=== PATIENT | female | born 1945 | race Caucasian/White ===

== ENCOUNTER 2016-10-29 14:34 | Inpatient (IN) ==
[2016-10-29] MEDS ORDERED: SOLU-MEDROL IV ONE (14:57)
[2016-10-29] MEDS ORDERED: ATROVENT NEB INH ONE (14:57)
[2016-10-29] MEDS ORDERED: ALBUTEROL NEB INH ONE (14:57)
[2016-10-29 15:22] LABS: MANUAL DIFF NEEDED? NO
[2016-10-29 15:25] LABS: BASO% 0.2 % (0.0-0.8); HEMOGLOBIN 15.5 g/dL (12.0-16.0); IMM GRAN# 0.03 X1000 (0.0-0.04); IMM GRAN% 0.3 % (0.0-0.5); LYMPH# 0.68 X1000 (1.2-3.4); LYMPH% 5.8 % (20.5-51.1); MCH 31.3 PG (27-31); MCHC 32.3 g/dL (33-37); MONO# 1.41 X1000 (0.11-0.59); MPV 9.5 FL (7.4-10.4); NEUT% 81.7 % (42.2-75.2); PLT 155 X1000 (130-400); RBC 4.95 XMIL (4.2-5.4)
[2016-10-29] MEDS ORDERED: ALBUTEROL NEB ONE (15:29)
[2016-10-29 15:37] LABS: INR 0.85 (0.86-1.15); PROTIME 11.9 Seconds (12.1-15.5)
[2016-10-29 15:38] LABS: PTT PL 25.1 Seconds (22.6-43.9)
[2016-10-29 15:42] LABS: AGAP 9; ALKALINE PHOSPHATASE 94 U/L (32-104); BUN 11 mg/dL (8-22); CALCIUM 8.7 mg/dL (8.8-10.2); CHLORIDE 97 mmol/L (98-107); CK PROFILE 102 U/L (24-173); COSMO 272; GOT 25 U/L (10-30); GPT 13 U/L (10-36); MAGNESIUM 1.9 mg/dL (1.5-2.7); POTASSIUM 3.9 mmol/L (3.5-5.1); SODIUM 136 mmol/L (136-145); TCO2 30 mmol/L (25-35); TOTAL BILIRUBIN < 0.15 mg/dL (0.20-1.00); TOTAL PROTEIN 7.2 g/dL (6.3-8.3)
[2016-10-29 15:43] LABS: BE 2.9 mmoll (-3.0-3.0); BLOOD TYPE ARTERIAL; DRAW SITE R RADIAL; METHB 1.1 % (0.0-1.5); O2(CT) 19.6 mL/dL (15.0-23.0); PO2(98.6) 92 mmHg (60-100); SAMPLE BLOOD; SAO2 97.9 % (95.0-100.0); THB 15.4 g/dL (11.5-17.4); pH(98.6) 7.28 (7.35-7.45)
[2016-10-29 15:45] LABS: MODALITY ROOM AIR
[2016-10-29 15:47] LABS: PCO2(98.6) 68 mmHg (35-45)
--- NOTE | 2016-10-29 15:50 | Diag Imaging Result Document ---
PROCEDURE NAME: CHEST-2 VIEWS - 10/29/2016 2 VIEWS OF THE CHEST: FINDINGS: The appearance of the chest has not changed significantly since 10/28/2016. IMPRESSION: Stable chest.
--- NOTE | 2016-10-29 16:47 | PROVIDER DOCUMENTATION ---
This chart was entered by Maliha Singer Scribe, acting as scribe for Jacqui Larsen MD. HPI-Respiratory General - General Chief Complaint: Shortness of Breath Stated Complaint: SOB/COPD Time Seen by Provider: 10/29/16 15:05 Source: patient Allergies/Adverse Reactions: Patient Allergies Allergy/AdvReac Type Severity Reaction Status Date / Time No Known Allergies Allergy Verified 10/29/16 14:46 Home Medications: Home Medication List Medication Instructions Recorded Confirmed Last Taken Type Carvedilol [Coreg] 6.25 mg PO BID 10/20/13 10/28/16 10/26/13 08:30 History 6.25 Famotidine [Pepcid AC] 20 mg PO DAILY 10/20/13 10/28/16 10/25/13 20:00 History 20 Potassium Gluconate [Potassium] 99 mg PO DAILY 10/20/13 10/28/16 10/25/13 20:00 History 99 Spironolactone [Aldactone] 50 mg PO DAILY 10/20/13 10/28/16 10/26/13 08:30 History 50 Azithromycin [Zithromax Z-Jameson] 250 mg PO DIRECTED #1 pkg 10/28/16 Unknown Rx Benzonatate [Tessalon] 100 mg PO TID PRN PRN #30 capsule 10/28/16 Unknown Rx - History of Present Illness-Resp Nature of Presenting Problem: Pt is 71 y/o F presents to the ED with SOB. Pt states the symptoms have been present for 4 days. Pt denies F. Pt states was seen in ED yesterday and was given a breathing treatment and steroid shot and sent home. Pt denies N/V/D. Quality of Pain: reports: tightness Severity in ED: reports: moderate Onset/Duration: reports: 4 days ago Timing: reports: still present, getting worse Exposure: reports: unknown cause Cough Quality/Degree: reports: no cough Episode Frequency: occasional episodes Current Respiratory Medication Therapy: Initiated see nurses note Modifying Factors: improves with: nothing Associated Symptoms: reports: shortness of breath. denies: chest pain/soreness , cough, dizziness, earache, facial pain, fever/chills, flu-like symptoms, headache, heart racing, hurts to breathe, hyperventilating, lightheadedness, muscle/bodyaches, nasal congestion, nasal drainage, sinus pain, short of breath , sore throat, sweaty, wheezing Similar Symptoms Previously?: Yes Recently seen or treated by another doctor?: Yes Review of Systems - Adult - REVIEW OF SYSTEMS - ADULT Constitutional: denies: chills, fever Eyes: reports: no symptoms reported Ears, Nose, Mouth & Throat: reports: no symptoms reported Cardiovascular: reports: irregular heart rate. denies: chest pain, heart murmur Respiratory: reports: shortness of breath. denies: cough, wheezing Gastrointestinal: reports: no symptoms reported Genitourinary: reports: no symptoms reported Musculoskeletal: reports: no symptoms reported Integumentary: reports: no symptoms reported Neurological: reports: no symptoms reported Psychiatric: reports: no symptoms reported Endocrine: reports: no symptoms reported Hematologic/Lymphatic: reports: no symptoms reported Allergic/Immunologic: reports: no symptoms reported All Other Systems: Reviewed and Negative Past History - Adult - PAST MEDICAL HISTORY-ADULT Review of Records: reports: Nursing Assessment Review, Medications Reviewed, Social history reviewed & non-contributory. Major Childhood Illnesses: reports: denies history Cardiovascular: reports: HTN Respiratory: reports: denies history Gastrointestinal: reports: denies history Obstetrical/Gynecological: reports: denies history Genitourinary: reports: denies history Musculoskeletal: reports: denies history Neurological: reports: denies history Endocrine/Immune: reports: denies history Other Conditions: reports: other (cervical can) - PRIOR SURGERIES/PROCEDURES Surgical/Procedure History: reports: appendectomy, hysterectomy, tonsillectomy, other (colon resection) - IMMUNIZATION STATUS Childhood Immunizations: See Nurse Assessment Flu Vaccine: See Nurse Assessment - FAMILY HISTORY Family History: reviewed, not pertinent - SOCIAL HISTORY Smoking: cigarettes, greater than 1 pack/day Provider spent 3-5 mins advising pt. on dangers of tobacco.: Discussed manners to quit use, and f/u contacts for add'l counseling. Substance Use: denies Living Situation: family Physical Exam-General - PHYSICAL EXAM-ADULT Initial Vital Signs Reviewed: Yes - CONSTITUTIONAL General Appearance: appears well, alert, mild distress - EYES Eyes: PERRL/EOMI, pink conjunctivae - HEAD, EARS, NOSE, MOUTH & THROAT HENMT: normocephalic/atraumatic, moist mucous membranes, normal ENT inspection, TMs normal, pharynx normal - NECK Neck: non-tender, full range of motion, supple, normal inspection - RESPIRATORY Respiratory: chest non-tender, no pleuratic chest pain, no respiratory distress , no accessory muscle use, decreased breath sounds, wheezing, increased rate - CARDIOVASCULAR Cardiovascular: normal peripheral pulses, no edema, no gallop, no JVD, no murmur , tachycardia - GASTROINTESTINAL (ABDOMEN) Abdominal Exam: normal bowel sounds, non tender, soft, no organomegaly, no pulsatile mass - LYMPHATIC Lymphatic: no adenopathy - MUSCULOSKELETAL Back Exam: normal inspection, no CVA tenderness, no vertebral tenderness Extremity: normal range of motion, non-tender, normal gait, normal inspection, no pedal edema, no calf tenderness, normal capillary refill, pelvis stable - SKIN Integumentary: normal color, normal turgor, warm/dry - NEUROLOGIC Neurologic: grossly normal - PSYCHIATRIC Psych/Mental Status: normal mood/affect, oriented x 3 Progress - PLAN OF CARE/RESULTS Progress/Plan/Lab Results: Vital Signs - 8 hr 10/29/16 14:41 10/29/16 15:14 10/29/16 15:25 Temperature 99.0 F 98.4 F Pulse Rate 120 H 110 H 106 H Respiratory Rate 20 30 H 18 Blood Pressure 138/69 136/79 O2 Sat by Pulse Oximetry 76 L 98 98 Laboratory Results - last 24 hr 10/29/16 10/29/16 10/29/16 14:58 14:58 14:58 WBC RBC Hgb Hct MCV MCH MCHC RDW Std Deviation Plt Count MPV Immature Gran % (Auto) Neut % (Auto) Lymph % (Auto) Toole % (Auto) Eos % (Auto) Baso % (Auto) Immature Gran # (Auto) Neut # (Auto) Lymph # (Auto) Toole # (Auto) Eos # (Auto) Baso # (Auto) PT INR APTT (Factor Assay) D-Dimer Specimen Type Sample Site pH pCO2 pO2 HCO3 Base Excess Oxyhemoglobin ABG O2 Sat (Calculated) ABG O2 Saturation ABG Carboxyhemoglobin ABG Methemoglobin Renny Test A-a O2 Difference Total Hemoglobin Lactate Blood Gas Modality FiO2 % Sodium 136 Potassium 3.9 Chloride 97 L Carbon Dioxide 30 Anion Gap 9 BUN 11 D Creatinine 0.6 Estimated GFR/1.73 m2 > 60 BUN/Creatinine Ratio 18 Glucose 116 H Calculated Osmolality 272 Calcium 8.7 L Magnesium 1.9 Total Bilirubin < 0.15 L AST 25 ALT 13 Alkaline Phosphatase 94 Creatine Kinase 102 Troponin T < 0.010 [id number] Pept 295 Total Protein 7.2 Albumin 4.0 Globulin 3.0 Albumin/Globulin Ratio 1.0 10/29/16 10/29/16 10/29/16 14:58 14:58 15:26 WBC 11.77 H D RBC 4.95 Hgb 15.5 Hct 48.0 H MCV 97.0 MCH 31.3 H MCHC 32.3 L RDW Std Deviation 13.3 Plt Count 155 MPV 9.5 Immature Gran % (Auto) 0.3 Neut % (Auto) 81.7 H Lymph % (Auto) 5.8 L Toole % (Auto) 12.0 H Eos % (Auto) 0.0 Baso % (Auto) 0.2 Immature Gran # (Auto) 0.03 Neut # (Auto) 9.63 H Lymph # (Auto) 0.68 L Toole # (Auto) 1.41 H Eos # (Auto) 0.00 Baso # (Auto) 0.02 PT 11.9 L INR 0.85 L APTT (Factor Assay) 25.1 D-Dimer 0.60 H Specimen Type ARTERIAL Sample Site R RADIAL pH 7.28 L pCO2 68 H* pO2 92 HCO3 27.0 H Base Excess 2.9 Oxyhemoglobin 90.1 L ABG O2 Sat (Calculated) 19.6 ABG O2 Saturation 97.9 ABG Carboxyhemoglobin 6.90 H* ABG Methemoglobin 1.1 Renny Test NO A-a O2 Difference -27.0 Total Hemoglobin 15.4 Lactate 1.40 Blood Gas Modality ROOM AIR FiO2 % 21.0 Sodium Potassium Chloride Carbon Dioxide Anion Gap BUN Creatinine Estimated GFR/1.73 m2 BUN/Creatinine Ratio Glucose Calculated Osmolality Calcium Magnesium Total Bilirubin AST ALT Alkaline Phosphatase Creatine Kinase Troponin T Pyc-[id number]-Cijuiijczax Pept Total Protein Albumin Globulin Albumin/Globulin Ratio Orders Category Date Time Status Cardiac Monitoring DIRECTED Care 10/29/16 14:57 Active Saline Loc NOW Care 10/29/16 14:57 Active CHEST-2 VIEWS [RAD] Stat Exams 10/29/16 14:57 Draft ABG [RESP] Routine Lab 10/29/16 15:26 Completed BLOOD CULTURE [BLDCUL] Stat Lab 10/29/16 14:57 Ordered CBC WITH ELECTRONIC DIFF [HEME] Stat Lab 10/29/16 14:58 Completed CK PROFILE [SP CHEM] Stat Lab 10/29/16 14:58 Completed COMPREHENSIVE METABOLIC PANEL [CHEM] Stat Lab 10/29/16 14:[address] D-DIMER PL [COAG] Stat Lab 10/29/16 14:58 Completed MAGNESIUM [CHEM] Stat Lab 10/29/16 14:58 Completed PRO B-NATRIURETIC PEPTIDE Stat Lab 10/29/16 14:58 Completed PROTIME WITH INR PL [COAG] Stat Lab 10/29/16 14:[address] [COAG] Stat Lab 10/29/16 14:58 Completed TROPONIN T Stat Lab 10/29/16 14:[address] W/POSS RFLX CULT [URINALYSIS] Stat Lab 10/29/16 14:57 Uncollected Albuterol Neb Med 10/29/16 14:57 Discontinued 10 mg INH NOW ONE Albuterol [Albuterol Neb] Med 10/29/16 15:29 Discontinued 10 mg .ROUTE .STK-MED ONE Ipratropium [place] Neb [Atrovent Neb] Med 10/29/16 14:57 Discontinued 0.5 mg INH NOW ONE Methylprednisolone Sod Succ [Solu-Medrol] Med 10/29/16 14:57 Discontinued 125 mg IV NOW ONE Aerosol Treatments Routine Oth 10/29/16 15:01 Active Aerosol Treatments Stat Oth 10/29/16 15:01 Active BIPAP Stat Oth 10/29/16 15:50 Active EKG [EKG] Stat Ther 10/29/16 14:57 Ordered Result Diagrams: 10/29/16 14:58 10/29/16 14:58 - EKG 1 Time of EKG reading by physician:: 15:04 EKG Read and Signed by:: Jacqui Larsen EKG Interpretation (*Must complete 3 of following elements*): Abnormal Rate: 112 Rhythm: sinus tachycardia Comments: possible left atrial enlargement; anteroseptal infarct, age undetermined - XRAY 1 XRAY: Bilateral XRAY Study: Chest Impression: Normal XRAY Interpretation: stable chest - CONSULTS/PCP/HOSPITALIST Notification #1 *Consult/PCP/Hospitalist*: Dr. Garcia Time Discussed: 15:56 (Dr. Garcia accepted admit ) Reason/Comments: Dr. Larsen consulted with Dr. Garcia about admit of Pt Consult Disposition: Admit Departure - Departure Time of Disposition Decision: 15:55 DIAGNOSIS: Carbon dioxide retention, COPD exacerbation Disposition: ADMITTED INPATIENT 09 Certified Medical Emergency: Emergent Condition: Stable Additional Freetext Instructions: ED Follow Up Instructions: You have been treated by a care provider in the Emergency Department. These instructions are being provided to you so you can have an understanding of how to care for yourself upon discharge. Upon discharge from the Emergency Department, you are responsible for making arrangements for follow-up care by a physician of your choice. Take all prescribed medications as directed. Return to the Emergency Department immediately for any new or worsening symptoms. You may call the Physician Referral phone number at [phone] to obtain a list of Physicians who are taking new patients. Referrals and Follow-Ups: Edward Garcia MD [Primary Care Provider] - This chart was documented by the indicated scribe, (Maliha Singer Scribe) and accurately reflects the services I performed and decisions made by me, Jacqui Larsen MD, as attested by the provider's signature.
--- NOTE | 2016-10-29 18:29 | EKG Report ---
Test Performed on : 10/29/2016 3:04:47 PM Test Reason : CHEST PAIN Blood Pressure : / mmHG Vent. Rate : 112 BPM Atrial Rate : 112 BPM P-R Int : 154 ms QRS Dur : 072 ms QT Int : 346 ms P-R-T Axes : 081 060 044 degrees QTc Int : 472 ms Sinus tachycardia. Possible Left atrial enlargement Anteroseptal infarct , age undetermined Abnormal ECG When compared with ECG of 28-OCT-2016 09:47, premature ventricular complexes. are no longer present Unconfirmed Result
[2016-10-29] MEDS: COREG PO SCH (20:33)
[2016-10-29] MEDS: NICODERM PATCH TD PRN (20:34)
[2016-10-30 00:16] LABS: BE 5.6 mmoll (-3.0-3.0); BLOOD TYPE ARTERIAL; DRAW SITE R RADIAL; METHB 1.2 % (0.0-1.5); O2(CT) 19.3 mL/dL (15.0-23.0); PO2(98.6) 57 mmHg (60-100); SAMPLE BLOOD; SAO2 93.4 % (95.0-100.0); THB 15.5 g/dL (11.5-17.4); pH(98.6) 7.27 (7.35-7.45)
[2016-10-30 00:26] LABS: ALLEN TEST YES; MODALITY CANNULA; PCO2(98.6) 78 mmHg (35-45)
[2016-10-30 00:55] LABS: BILIRUBIN URINE NEGATIVE (NEGATIVE); BLOOD URINE TRACE (NEGATIVE); COLOR YELLOW; GLUCOSE URINE NEGATIVE (NEGATIVE); LEUKOCYTES URINE NEGATIVE (NEGATIVE); NITRITE URINE NEGATIVE (NEGATIVE); PROTEIN URINE 1+(30 mg/dL) mg/dL (NEGATIVE); UROBILINOGEN URINE NORMAL
[2016-10-30 00:55] LABS: UR AMPHETAMINES QUAL NONE DETECTED (NONE DETECT); UR BARBITUATES QUAL NONE DETECTED (NONE DETECT); UR BENZODIAZEPIN QUAL NONE DETECTED (NONE DETECT); UR CANNABINOIDS QUAL NONE DETECTED (NONE DETECT); UR COCAINE QUAL NONE DETECTED (NONE DETECT); UR MDMA QUAL NONE DETECTED (NONE DETECT); UR METHADONE QUAL NONE DETECTED (NONE DETECT); UR METHAMPHETAMINE QUAL NONE DETECTED (NONE DETECT); UR OPIATES QUAL NONE DETECTED (NONE DETECT); UR OXYCODONE QUAL NONE DETECTED (NONE DETECT); UR PCP QUAL NONE DETECTED (NONE DETECT); UR TCA QUAL NONE DETECTED (NONE DETECT)
[2016-10-30 01:04] LABS: CLARITY HAZY (CLEAR)
[2016-10-30 01:06] LABS: URINE CULTURE PL NEEDED? YES; URINE EPITHELIAL CELLS >10 /HPF (<10); URINE RBC <10 /HPF (<10); URINE SOURCE CLEAN CATCH; URINE WBC <10 /HPF (<10)
[2016-10-30] MEDS: COREG PO SCH ×2 (08:28→21:15)
[2016-10-30] MEDS: ALDACTONE PO SCH (08:29)
--- NOTE | 2016-10-30 14:22 | PROGRESS NOTE ---
DATE: 10/30/2016 Ms. Plunkett is a patient of mine that I had not seen in 4 years. She is 71 years old and has a long- standing history of cigarette abuse and apparent COPD. She presented on this occasion to the emergency room complaining of shortness of breath and was given a chest x-ray that revealed no significant change in pathology although they did not cite the kind of pathology she previously had on her film. Her initial white count was 11,770 with a left shift. Hematocrit was 48 and platelet count was 155,000. Coags: D-dimer was 0.60, her PT was 11.9, INR was 0.85. Initial blood gas; pH was 728, pCO2 was 68, PO2 was 92, and her carboxyhemoglobin was 6.90. These were done on room air. Lactate was 1.4, oxyhemoglobin was 90. She was subsequently tried on 32% cannula, pH was 727, pCO2 was 78, PO2 was 57, O2 oxyhemoglobin was 88.8. Her carboxyhemoglobin was 3.70. Her chemistries from admission revealed a sodium of 136, potassium of 3.9, chloride was 97, CO2 was 30, BUN of 11, creatinine 0.6. GFR is greater than 60. BUN:creatinine ratio was 18, glucose 166, calcium 8.7, magnesium 1.9, total bilirubin 0.15. ALT was 13, AST 25, albumin 3, total protein 7.2, CK was 102, troponin was less than 0.01. BNP was 295. Her urine was 2+ bacteria, less than 10 RBCs, no white cells, epithelial cells were greater than 10. Toxicologies were none detected. She was felt to be in respiratory failure based on probably COPD secondary to cigarette smoking. She was admitted to the ICU from the emergency room. Cultures have been obtained. She is on Coreg 6.25 b.i.d. She is currently on a nicotine patch 14 mg daily. She is on spironolactone 50 daily, albuterol/ipratropium q.4, methylprednisolone 125 one dose. She had some home medicines which include a Z-Jameson that she had obtained from the ER along with some Tessalon Perles. She also had Pepcid 20 daily, spironolactone 50 daily, potassium gluconate 100 mg daily. Today, her vital signs: She is very alert. Temperature is 97.9 degrees, pulse is 86, respiratory rate was 18, BP 118/62. Her O2 saturation was 95 on 40%. She seems fine. I do not think she is infected, I think it is just a combination of her cigarette smoking. Hopefully her gases are better today. I think it is appropriate to put her on some antibiotics just orally and some steroids and continue pulmonary toilet and follow her gasses. cc: Edward Garcia MD
[2016-10-30] MEDS: LEVAQUIN 500 MG/D5W 500 MG/100 ML IVPB IV SCH (15:48)
[2016-10-30] MEDS: SOLU-MEDROL IV SCH ×2 (15:48→21:14)
[2016-10-30] MEDS: NICODERM PATCH TD PRN (21:19)
[2016-10-31] MEDS: SOLU-MEDROL IV SCH ×3 (05:37→20:02)
[2016-10-31 06:05] LABS: BE 9.7 mmoll (-3.0-3.0); BLOOD TYPE ARTERIAL; DRAW SITE L BRACHIAL; METHB 1.4 % (0.0-1.5); O2(CT) 19.7 mL/dL (15.0-23.0); PO2(98.6) 80 mmHg (60-100); SAMPLE BLOOD; SAO2 97.2 % (95.0-100.0); THB 14.9 g/dL (11.5-17.4); pH(98.6) 7.34 (7.35-7.45)
[2016-10-31 06:18] LABS: ALLEN TEST NO; MODALITY BI PAP; PCO2(98.6) 72 mmHg (35-45)
[2016-10-31 07:03] LABS: BASO% 0.4 % (0.0-0.8); HEMATOCRIT 46.5 % (37.0-47.0); HEMOGLOBIN 14.2 g/dL (12.0-16.0); IMM GRAN# 0.02 X1000 (0.0-0.04); IMM GRAN% 0.4 % (0.0-0.5); LYMPH# 0.78 X1000 (1.2-3.4); LYMPH% 14.3 % (20.5-51.1); MANUAL DIFF NEEDED? YES; MCH 30.3 PG (27-31); MCHC 30.5 g/dL (33-37); MCV 99.1 FL (81-99); MONO# 0.31 X1000 (0.11-0.59); MONO% 5.7 % (1.7-9.3); MPV 9.9 FL (7.4-10.4); NEUT% 79.2 % (42.2-75.2); PLT 124 X1000 (130-400); RBC 4.69 XMIL (4.2-5.4)
[2016-10-31 07:14] LABS: AGAP 7; BUN 15 mg/dL (8-22); CALCIUM 8.6 mg/dL (8.8-10.2); CHLORIDE 94 mmol/L (98-107); COSMO 270; POTASSIUM 4.3 mmol/L (3.5-5.1); SODIUM 134 mmol/L (136-145); TCO2 33 mmol/L (25-35)
[2016-10-31 07:54] LABS: LYMPHS 12 % (21-51); MONO 10 % (1-9)
[2016-10-31] MEDS: COREG PO SCH ×2 (09:30→20:01)
[2016-10-31] MEDS: ALDACTONE PO SCH (10:00)
[2016-10-31 11:01] LABS: ALLEN TEST YES
[2016-10-31] MEDS: LEVAQUIN 500 MG/D5W 500 MG/100 ML IVPB IV SCH (14:52)
[2016-10-31] MEDS: MOTRIN PO PRN (20:02)
[2016-10-31] MEDS: NICODERM PATCH TD PRN (20:02)
[2016-11-01] MEDS: COREG PO SCH ×2 (08:18→20:02)
[2016-11-01] MEDS: ALDACTONE PO SCH (08:18)
[2016-11-01] MEDS: SOLU-MEDROL IV SCH ×3 (08:18→23:00)
[2016-11-01 11:55] LABS: BE 10.6 mmoll (-3.0-3.0); BLOOD TYPE ARTERIAL; DRAW SITE R BRACHIAL; O2(CT) 20.1 mL/dL (15.0-23.0); PO2(98.6) 61 mmHg (60-100); SAMPLE BLOOD; SAO2 94.7 % (95.0-100.0); THB 15.6 g/dL (11.5-17.4); pH(98.6) 7.41 (7.35-7.45)
[2016-11-01 11:57] LABS: ALLEN TEST NO; MODALITY CANNULA; PCO2(98.6) 60 mmHg (35-45)
[2016-11-01] MEDS: LEVAQUIN 500 MG/D5W 500 MG/100 ML IVPB IV SCH (15:45)
[2016-11-01 17:36] LABS: BE 8.6 mmoll (-3.0-3.0); BLOOD TYPE ARTERIAL; DRAW SITE L RADIAL; METHB 1.3 % (0.0-1.5); O2(CT) 18.8 mL/dL (15.0-23.0); SAMPLE BLOOD; THB 15.7 g/dL (11.5-17.4); pH(98.6) 7.44 (7.35-7.45)
[2016-11-01 17:39] LABS: PCO2(98.6) 51 mmHg (35-45)
[2016-11-01 17:40] LABS: PO2(98.6) 46 mmHg (60-100)
[2016-11-01 17:41] LABS: ALLEN TEST YES
[2016-11-01] MEDS: MOTRIN PO PRN (20:03)
[2016-11-01] MEDS: NICODERM PATCH TD PRN (20:07)
[2016-11-02 07:59] LABS: BE 11.5 mmoll (-3.0-3.0); BLOOD TYPE ARTERIAL; DRAW SITE L RADIAL; METHB 1.2 % (0.0-1.5); PCO2(98.6) 50 mmHg (35-45); PO2(98.6) 57 mmHg (60-100); SAMPLE BLOOD; SAO2 93.9 % (95.0-100.0); THB 16.5 g/dL (11.5-17.4); pH(98.6) 7.48 (7.35-7.45)
[2016-11-02 08:01] LABS: ALLEN TEST YES; MODALITY CANNULA
[2016-11-02 08:28] VITALS: BP 148/77
[2016-11-02] MEDS: ALDACTONE PO SCH (09:52)
[2016-11-02] MEDS: COREG PO SCH (09:53)
[2016-11-02] MEDS: SOLU-MEDROL IV SCH (09:53)
[2016-11-05 11:56] LABS: MODALITY ROOM AIR
--- NOTE | 2016-11-15 22:55 | DISCHARGE SUMMARY ---
ADMISSION DATE: 10/29/2016 DISCHARGE DATE: 11/02/2016 HISTORY: Yudith Plunkett is a left-sided smoker, who presented in respiratory distress with ventilatory failure. Her database here her blood gases when she presented her pH was 728, pH was low, pCO2 was 68 high, PO2 was 92, and that was on 21% with a 6.9 carboxyhemoglobin during the hospital stay. Her gases significantly improved. Carboxyhemoglobin at discharge was 2.2. Her blood gases pH was 748, pCO2 was 50, PO2 was 57, on 2 L nasal cannula. Her microbiology was negative. The database, initial white count was 11,770, subsequent one was 5.47, hematocrit was 46.5, platelet count was fine. Chemistries likewise were relatively normal. LFTs were normal. Urinalysis was negative for the most part. Toxicologies were negative. Her chest x-ray was read has stable. No changes since her prior exam. She had an EKG, which showed a sinus tach. She had a significant improvement being away from her cigarettes. We ended up sending her up for home neb treatments and oxygen, and we will be following her as an outpatient. cc: Edward Garcia MD
--- NOTE | 2016-11-18 09:01 | HISTORY AND PHYSICAL ---
HISTORY OF PRESENT ILLNESS: The patient presented to the emergency room complaining of shortness of breath. She stated that these symptoms have been present for 4 days. She has had no associated fever. Had been seen in the ER the day prior to her presentation on 10/29/2016 and was given a breathing treatment and a steroid shot and sent home. She denies nausea or vomiting. She has of tightness in her chest the past 4 days. It seems like it is getting worse. Not really coughing, but feels short of breath. She denied any chest pain, cough, fever, chills, dizziness, flu-like symptoms, headache, racing heart. It is difficult for her to breathe. She does breathe fast. She is generally short of breath and has had some issues with wheezing. ALLERGIES: She has no allergies. MEDICATION: She presented on carvedilol 6.25 b.i.d., 20 of Pepcid, 100 mg of potassium, spironolactone 50, and she was recently was put on benzoate and a Z-Jameson. REVIEW OF SYSTEMS: Constitution: She denies any fever or chills. No significant weight gain or weight loss. Eyes: No injection or discharge from her eyes, change in visual del real or visual acuity. Ears, Nose, and Throat: No sinusitis, otitis, or pharyngitis. Cardiovascular: She denies chest pain, heart murmur. She has an irregular heart rate. Respiratory: She denies significant cough. She is wheezing. She is short of breath. REVIEW OF SYSTEMS: Gastrointestinal: She denies any nausea, vomiting, diarrhea, or constipation. No melena, hematochezia. Genitourinary: No dysuria, hematuria, polyuria, pyuria, incontinence. Musculoskeletal: No significant joint aches, bone pain, deformities. Skin clear. No rashes or masses. Neurologic: No history of seizures, epilepsy, syncope, migraines. Hematological: No bleeding. No bruising. No clotting. Allergy: No hay fever. No asthma. PAST MEDICAL HISTORY: She has a history of hypertension. She has a longstanding history of COPD. She has a history of cervical cancer. She is status post appendectomy, hysterectomy, tonsillectomy, and a colon resection. The patient is a smoker smoking greater than a pack a day even now. She denies substance abuse. PHYSICAL EXAMINATION: VITAL SIGNS: At the time of admission, she had a temperature of 99 degrees, pulse of 120, respiratory 20, BP 138/69. Her O2 saturation downstairs was 76. Subsequent O2 saturations were 98 on supplemental oxygen. HEAD: Normocephalic. GENERAL: She was in mild distress. She was visibly dyspneic. EYES: PERRLA. EOMs intact. HEENT: No pharyngitis. No dry mucous membranes. Normal ears, nose, and throat inspection. Neck supple. Bounding carotids without thyromegaly or midline trachea. Respiratory: Chest was nontender. No pleuritic pain. No respiratory distress. No accessory muscle use. She had decreased breath sounds wheezing and increased respiratory rate. CARDIOVASCULAR: She had normal peripheral pulse. No edema. No gallop. No JVD. No murmur. Tachycardia. Abdomen: Soft. No hepatosplenomegaly. No CVA tenderness. EXTREMITIES: Negative for clubbing, cyanosis, or edema. LYMPHATICS: No lymphadenopathy. MUSCULOSKELETAL: No obvious deformities. SKIN: Clear. NEUROLOGIC: Symmetrical. PSYCHIATRIC: Oriented x3. LABORATORY DATA: Her database in the ER as well included the following: She had a normal set of electrolytes. BUN 11, creatinine 0.6, GFR greater than 60, glucose 116, and calcium 8.7. Mag 1.9. LFTs were normal. CK and troponins were normal. BNP was normal. Protein, albumin, and globulins were negative. CBC: White count was 11,770. Hematocrit 48. Platelet count was 155,000. She had a left shift. D-dimer was 0.6. Blood gas 728. PCO2 of 68, PO2 of 92, carboxyhemoglobin 6.9; this was on room air. She had an EKG which showed sinus tach, possible left atrial enlargement and anterior septal infarct. Rate was 112. Chest x-ray was normal. She was admitted with carbon dioxide retention, COPD, smoker. cc: Edward Garcia MD
== END 2016-11-02 12:10 | disposition home or self-care (01) ==
LOC: P.ICU 14:34 → P.ED 14:34 → OBSVTOIN 16:34
PROVIDERS: ADMIT Internal Medicine; ATTEND Internal Medicine

== ENCOUNTER 2016-11-03 02:14 | Inpatient (IN) ==
[2016-11-03] MEDS ORDERED: SOLU-MEDROL IV ONE (02:17)
[2016-11-03] MEDS ORDERED: DUONEB (A & A) INH ONE (02:17)
--- NOTE | 2016-11-03 02:18 | PROVIDER DOCUMENTATION ---
HPI-Respiratory General - General Stated Complaint: SOB Time Seen by Provider: 11/03/16 02:16 Source: patient Unable to obtain history due to:: urgency Allergies/Adverse Reactions: Patient Allergies Allergy/AdvReac Type Severity Reaction Status Date / Time No Known Allergies Allergy Verified 11/03/16 02:20 Home Medications: Home Medication List Medication Instructions Recorded Confirmed Last Taken Type Carvedilol [Coreg] 6.25 mg PO BID 10/20/13 11/03/16 10/26/13 08:30 History 6.25 Famotidine [Pepcid AC] 20 mg PO DAILY 10/20/13 11/03/16 10/25/13 20:00 History 20 Potassium Gluconate [Potassium] 99 mg PO DAILY 10/20/13 11/03/16 10/25/13 20:00 History 99 Spironolactone [Aldactone] 50 mg PO DAILY 10/20/13 11/03/16 10/26/13 08:30 History 50 Azithromycin [Zithromax Z-Jameson] 250 mg PO DIRECTED #1 pkg 10/28/16 11/03/16 Unknown Rx Benzonatate [Tessalon] 100 mg PO TID PRN PRN #30 capsule 10/28/16 11/03/16 Unknown Rx - History of Present Illness-Resp Quality of Pain: reports: aching Severity in ED: reports: mild Onset/Duration: reports: 4-6 hours ago Timing: reports: still present, gone now Context: reports: recent URI Exposure: reports: enviromental allergen exposure Cough Quality/Degree: reports: no cough Episode Frequency: no prior episodes Current Respiratory Medication Therapy: Initiated see nurses note Modifying Factors: improves with: nothing Associated Symptoms: reports: fever/chills, lightheadedness, shortness of breath , short of breath Similar Symptoms Previously?: Yes Recently seen or treated by another doctor?: Yes Review of Systems - Adult - REVIEW OF SYSTEMS - ADULT Constitutional: reports: no symptoms reported Eyes: reports: no symptoms reported Ears, Nose, Mouth & Throat: reports: no symptoms reported Cardiovascular: reports: no symptoms reported Respiratory: reports: no symptoms reported Gastrointestinal: reports: no symptoms reported Genitourinary: reports: no symptoms reported Musculoskeletal: reports: no symptoms reported Integumentary: reports: no symptoms reported Neurological: reports: no symptoms reported Psychiatric: reports: no symptoms reported Endocrine: reports: no symptoms reported Hematologic/Lymphatic: reports: no symptoms reported Allergic/Immunologic: reports: no symptoms reported All Other Systems: Reviewed and Negative Past History - Adult - PAST MEDICAL HISTORY-ADULT Review of Records: reports: Old Records Reviewed, Nursing Assessment Review, Medications Reviewed, Social history reviewed & non-contributory. Major Childhood Illnesses: reports: denies history Cardiovascular: reports: HTN Respiratory: reports: denies history Gastrointestinal: reports: denies history Obstetrical/Gynecological: reports: denies history Genitourinary: reports: denies history Musculoskeletal: reports: denies history Neurological: reports: denies history Endocrine/Immune: reports: denies history Other Conditions: reports: other (cervical can) - PRIOR SURGERIES/PROCEDURES Surgical/Procedure History: reports: appendectomy, hysterectomy, tonsillectomy, other (colon resection) - IMMUNIZATION STATUS Childhood Immunizations: See Nurse Assessment Flu Vaccine: See Nurse Assessment - FAMILY HISTORY Family History: reviewed, not pertinent Physical Exam-General - PHYSICAL EXAM-ADULT Initial Vital Signs Reviewed: Yes - CONSTITUTIONAL General Appearance: appears well, alert, no apparent distress - EYES Eyes: PERRL/EOMI, pink conjunctivae - HEAD, EARS, NOSE, MOUTH & THROAT HENMT: normocephalic/atraumatic, moist mucous membranes, normal ENT inspection, TMs normal, pharynx normal - NECK Neck: non-tender, full range of motion, supple, normal inspection - RESPIRATORY Respiratory: chest non-tender, lungs clear, normal breath sounds, no pleuratic chest pain, no respiratory distress, no accessory muscle use - CARDIOVASCULAR Cardiovascular: normal peripheral pulses, regular rate, rhythm, no edema, no gallop, no JVD, no murmur - GASTROINTESTINAL (ABDOMEN) Abdominal Exam: normal bowel sounds, non tender, soft, no organomegaly, no pulsatile mass - LYMPHATIC Lymphatic: no adenopathy - MUSCULOSKELETAL Back Exam: normal inspection, no CVA tenderness, no vertebral tenderness Extremity: normal range of motion, non-tender, normal gait, normal inspection, no pedal edema, no calf tenderness, normal capillary refill, pelvis stable - SKIN Integumentary: normal color, normal turgor, warm/dry - NEUROLOGIC Neurologic: adzing and boring machine helper II-XII nml as tested, no motor/sensory deficits - PSYCHIATRIC Psych/Mental Status: normal mood/affect, normal thought content, normal thought process, oriented x 3 Progress - PLAN OF CARE/RESULTS Progress/Plan/Lab Results: Vital Signs - 8 hr 11/03/16 02:15 11/03/16 02:30 11/03/16 02:57 Temperature 97.0 F L Pulse Rate 86 89 82 Respiratory Rate 25 H 18 22 Blood Pressure 148/82 135/82 O2 Sat by Pulse Oximetry 94 L 93 L 93 L 11/03/16 03:55 11/03/16 04:33 11/03/16 05:05 Temperature Pulse Rate 86 102 H 97 H Respiratory Rate 22 24 18 Blood Pressure 154/83 141/87 O2 Sat by Pulse Oximetry 94 L 93 L 92 L Laboratory Results - last 24 hr 11/03/16 11/03/16 11/03/16 02:14 02:35 02:35 WBC RBC Hgb Hct MCV MCH MCHC RDW Std Deviation Plt Count MPV Immature Gran % (Auto) Neut % (Auto) Lymph % (Auto) Swift % (Auto) Eos % (Auto) Baso % (Auto) Immature Gran # (Auto) Neut # (Auto) Lymph # (Auto) Swift # (Auto) Eos # (Auto) Baso # (Auto) PT INR APTT (Factor Assay) D-Dimer Specimen Type ARTERIAL Sample Site L BRACHIAL pH 7.51 H pCO2 43 pO2 58 L HCO3 32.4 H Base Excess 9.9 H Oxyhemoglobin 91.4 L ABG O2 Sat (Calculated) 22.2 ABG O2 Saturation 94.1 L ABG Carboxyhemoglobin 1.70 ABG Methemoglobin 1.1 Renny Test NO A-a O2 Difference 145.0 Total Hemoglobin 17.3 Lactate 1.10 Liter Flow 4.0 Blood Gas Modality CANNULA FiO2 % 36.0 Sodium 132 L Potassium 3.4 L Chloride 94 L Carbon Dioxide 30 Anion Gap 8 BUN 21 Creatinine 0.5 Estimated GFR/1.73 m2 > 60 BUN/Creatinine Ratio 42 Glucose 115 H Calculated Osmolality 268 Calcium 8.8 Magnesium 2.1 Total Bilirubin 0.60 AST 22 ALT 14 Alkaline Phosphatase 67 Creatine Kinase 51 Troponin T < 0.010 Oxb-V-Bavsgxaufil Pept Total Protein 6.6 Albumin 3.5 Globulin 3.0 Albumin/Globulin Ratio 1.0 Plasma Lactate 11/03/16 11/03/16 11/03/16 02:35 02:35 02:35 WBC 10.26 RBC 5.38 Hgb 16.4 H Hct 49.3 H MCV 91.6 MCH 30.5 MCHC 33.3 RDW Std Deviation 12.7 Plt Count 217 MPV 9.0 Immature Gran % (Auto) 0.2 Neut % (Auto) 74.7 Lymph % (Auto) 13.5 L Swift % (Auto) 11.5 H Eos % (Auto) 0.0 Baso % (Auto) 0.1 Immature Gran # (Auto) 0.02 Neut # (Auto) 7.67 H Lymph # (Auto) 1.38 Swift # (Auto) 1.18 H Eos # (Auto) 0.00 Baso # (Auto) 0.01 PT 12.5 INR 0.90 APTT (Factor Assay) 23.5 D-Dimer 1.28 H Specimen Type Sample Site pH pCO2 pO2 HCO3 Base Excess Oxyhemoglobin ABG O2 Sat (Calculated) ABG O2 Saturation ABG Carboxyhemoglobin ABG Methemoglobin Renny Test A-a O2 Difference Total Hemoglobin Lactate Liter Flow Blood Gas Modality FiO2 % Sodium Potassium Chloride Carbon Dioxide Anion Gap BUN Creatinine Estimated GFR/1.73 m2 BUN/Creatinine Ratio Glucose Calculated Osmolality Calcium Magnesium Total Bilirubin AST ALT Alkaline Phosphatase Creatine Kinase Troponin T Xoz-I-Pheseirnmnm Pept 1619 H Total Protein Albumin Globulin Albumin/Globulin Ratio Plasma Lactate 11/03/16 02:35 WBC RBC Hgb Hct MCV MCH MCHC RDW Std Deviation Plt Count MPV Immature Gran % (Auto) Neut % (Auto) Lymph % (Auto) Swift % (Auto) Eos % (Auto) Baso % (Auto) Immature Gran # (Auto) Neut # (Auto) Lymph # (Auto) Swift # (Auto) Eos # (Auto) Baso # (Auto) PT INR APTT (Factor Assay) D-Dimer Specimen Type Sample Site pH pCO2 pO2 HCO3 Base Excess Oxyhemoglobin ABG O2 Sat (Calculated) ABG O2 Saturation ABG Carboxyhemoglobin ABG Methemoglobin Renny Test A-a O2 Difference Total Hemoglobin Lactate Liter Flow Blood Gas Modality FiO2 % Sodium Potassium Chloride Carbon Dioxide Anion Gap BUN Creatinine Estimated GFR/1.73 m2 BUN/Creatinine Ratio Glucose Calculated Osmolality Calcium Magnesium Total Bilirubin AST ALT Alkaline Phosphatase Creatine Kinase Troponin T Tkc-Z-Cdagdmqxhix Pept Total Protein Albumin Globulin Albumin/Globulin Ratio Plasma Lactate 1.4 Orders Category Date Time Status Admit - [facility] Routine AdmDCTranf 11/03/16 05:08 Ordered Activity - Strict Bedrest ORDERED Care 11/03/16 05:08 Active Call Admitting on Arrival AT ADMISSION Care 11/03/16 05:09 Active Cardiac Monitoring DIRECTED Care 11/03/16 02:16 Active Saline Loc DIRECTED Care 11/03/16 05:08 Active Saline Loc NOW Care 11/03/16 02:16 Active Vital Signs Order ARRIVAL TO ROOM Care 11/03/16 05:08 Active Heart Healthy Diet Diet 11/03/16 05:10 Active CTA [ANGIOGRAM/PULMONARY ARTERIES] [CT] Stat Exams 11/03/16 02:16 Taken ABG [RESP] Routine Lab 11/03/16 02:14 Completed BLOOD CULTURE [BLDCUL] Stat Lab 11/03/16 02:17 Ordered CBC WITH ELECTRONIC DIFF [HEME] Stat Lab 11/03/16 02:35 Completed CK PROFILE [SP CHEM] Stat Lab 11/03/16 02:35 Completed COMPREHENSIVE METABOLIC PANEL [CHEM] Stat Lab 11/03/16 02:[address] D-D[address]ER [address] [COAG] Stat Lab 11/03/16 02:35 Completed LACTATE, PLASMA [CHEM] Stat Lab 11/03/16 02:35 Completed MAGNESIUM [CHEM] Stat Lab 11/03/16 02:35 Completed PRO B-NATRIURETIC PEPTIDE Stat Lab 11/03/16 02:35 Completed PR[address]IME WITH INR PL [COAG] Stat Lab 11/03/16 02:[address] [COAG] Stat Lab 11/03/16 02:35 Completed TROPONIN T Stat Lab 11/03/16 02:35 Completed Acetaminophen [Tylenol] Med 11/03/16 05:08 Active 650 mg PO Q6H PRN PRN Albuterol 2.5MG/Ipratrop 0.5MG [Duoneb (A & A)] Med 11/03/16 02:17 Discontinued 3 ml INH NOW ONE Albuterol 2.5MG/Ipratrop 0.5MG [Duoneb (A & A)] Med 11/03/16 07:30 Ordered 3 ml INH RTQ4H CefTRIAXONE 1 GM/NS [Rocephin 1 gm/Ns] Med 11/03/16 05:15 Ordered 1 gm in 50 ml IV Q24H Furosemide [Lasix] Med 11/03/16 03:31 Discontinued 60 mg IV NOW ONE Methylprednisolone Sod Succ [Solu-Medrol] Med 11/03/16 02:17 Discontinued 125 mg IV NOW ONE Methylprednisolone Sod Succ [Solu-Medrol] Med 11/03/16 05:15 Ordered 60 mg IV Q8H Morphine Med 11/03/16 05:08 Active 2 mg IV Q2H PRN PRN Nitroglycerin Med 11/03/16 03:31 Discontinued 1 inch TOP NOW ONE Ondansetron [Zofran] Med 11/03/16 05:08 Active 4 mg IV Q4H PRN PRN Aerosol Treatments Routine Oth 11/03/16 02:17 Completed Aerosol Treatments Routine Oth 11/03/16 05:10 Active Aerosol Treatments Stat Oth 11/03/16 02:17 Completed Aerosol Treatments Stat Oth 11/03/16 05:10 Active Oxygen Device Routine Oth 11/03/16 05:09 Active Telemetry [OM.EQ] Routine Oth 11/03/16 05:08 Active EKG [EKG] Stat Ther 11/03/16 02:16 Ordered Transfer/Admit Order [TRANSFER] Routine Transfer 11/03/16 05:12 Ordered Result Diagrams: 11/03/16 02:35 11/03/16 02:35 Departure - Departure Time of Disposition Decision: 05:00 DIAGNOSIS: COPD with emphysema Disposition: ADMITTED INPATIENT 09 Certified Medical Emergency: Emergent Condition: Stable Referrals and Follow-Ups: Edward Garcia MD [Primary Care Provider] -
[2016-11-03 02:32] LABS: BE 9.9 mmoll (-3.0-3.0); BLOOD TYPE ARTERIAL; DRAW SITE L BRACHIAL; METHB 1.1 % (0.0-1.5); O2(CT) 22.2 mL/dL (15.0-23.0); PCO2(98.6) 43 mmHg (35-45); PO2(98.6) 58 mmHg (60-100); SAMPLE BLOOD; SAO2 94.1 % (95.0-100.0); THB 17.3 g/dL (11.5-17.4); pH(98.6) 7.51 (7.35-7.45)
[2016-11-03 02:52] LABS: ALLEN TEST NO; MODALITY CANNULA
[2016-11-03 03:15] LABS: AGAP 8; ALBUMIN 3.5 g/dL (3.5-5.0); ALKALINE PHOSPHATASE 67 U/L (32-104); BUN 21 mg/dL (8-22); CALCIUM 8.8 mg/dL (8.8-10.2); CHLORIDE 94 mmol/L (98-107); CK PROFILE 51 U/L (24-173); COSMO 268; GOT 22 U/L (10-30); GPT 14 U/L (10-36); MAGNESIUM 2.1 mg/dL (1.5-2.7); POTASSIUM 3.4 mmol/L (3.5-5.1); SODIUM 132 mmol/L (136-145); TCO2 30 mmol/L (25-35); TOTAL PROTEIN 6.6 g/dL (6.3-8.3)
[2016-11-03 03:27] LABS: BASO% 0.1 % (0.0-0.8); HEMATOCRIT 49.3 % (37.0-47.0); HEMOGLOBIN 16.4 g/dL (12.0-16.0); IMM GRAN# 0.02 X1000 (0.0-0.04); IMM GRAN% 0.2 % (0.0-0.5); INR 0.9 (0.86-1.15); LYMPH# 1.38 X1000 (1.2-3.4); LYMPH% 13.5 % (20.5-51.1); MANUAL DIFF NEEDED? NO; MCH 30.5 PG (27-31); MCHC 33.3 g/dL (33-37); MCV 91.6 FL (81-99); MONO# 1.18 X1000 (0.11-0.59); MONO% 11.5 % (1.7-9.3); NEUT% 74.7 % (42.2-75.2); PLT 217 X1000 (130-400); PROTIME 12.5 Seconds (12.1-15.5); RBC 5.38 XMIL (4.2-5.4)
[2016-11-03 03:28] LABS: PTT PL 23.5 Seconds (22.6-43.9)
[2016-11-03] MEDS ORDERED: NITROGLYCERIN TOP ONE (03:31)
[2016-11-03] MEDS ORDERED: LASIX IV ONE (03:31)
[2016-11-03] MEDS ORDERED: ZOFRAN IV PRN (05:08)
[2016-11-03] MEDS ORDERED: TYLENOL PO PRN (05:08)
[2016-11-03] MEDS ORDERED: MORPHINE IV PRN ×2 (05:08→09:47)
[2016-11-03] MEDS ORDERED: ROCEPHIN 1 GM/NS 1 GM/50 ML IVPB IV SCH (05:15)
--- NOTE | 2016-11-03 05:29 | EKG Report ---
Test Performed on : 11/03/2016 02:34:27 AM Test Reason : CHEST PAIN Blood Pressure : / mmHG Vent. Rate : 080 BPM Atrial Rate : 080 BPM P-R Int : 144 ms QRS Dur : 082 ms QT Int : 370 ms P-R-T Axes : 069 029 027 degrees QTc Int : 426 ms Normal sinus rhythm. Minimal voltage criteria for LVH, may be normal variant Borderline ECG When compared with ECG of 29-OCT-2016 15:04, Criteria for Anteroseptal infarct are no longer present Unconfirmed Result
[2016-11-03] MEDS: DUONEB (A & A) INH SCH ×3 (08:00→15:30)
--- NOTE | 2016-11-03 09:15 | Diag Imaging Result Document ---
PROCEDURE NAME: ANGIOGRAM/PULMONARY ARTERIES - 11/03/2016 CT ANGIOGRAM PULMONARY ARTERIES: Exam performed with intravenous contrast. A dose-reduction protocol was used. Axial and reformatted coronal MIP images are obtained. COMPARISON: No comparison exam. FINDINGS: There are no filling defects identified in the pulmonary arteries. There are artifacts from motion which mildly limit detail. There is a right mid lung calcified granuloma from old granulomatous disease. There is mild basilar subsegmental atelectasis. There is no consolidation, pleural effusion, or pneumothorax identified. IMPRESSION: 1. No evidence of pulmonary embolism. 2. No pneumonia. No pneumothorax. A [facility] physician provided preliminary results at 5:00 a.m. on 11/03/2016. MTDD
[2016-11-03] MEDS: SOLU-MEDROL IV SCH ×2 (10:20→17:31)
[2016-11-03 14:31] LABS: BE 8.6 mmoll (-3.0-3.0); BLOOD TYPE ARTERIAL; DRAW SITE R RADIAL; METHB 1.3 % (0.0-1.5); O2(CT) 23.1 mL/dL (15.0-23.0); PCO2(98.6) 37 mmHg (35-45); PO2(98.6) 57 mmHg (60-100); SAMPLE BLOOD; SAO2 93.7 % (95.0-100.0); THB 18.2 g/dL (11.5-17.4); pH(98.6) 7.54 (7.35-7.45)
[2016-11-03 18:29] VITALS: BP 124/76
[2016-11-05 10:53] LABS: ALLEN TEST YES; MODALITY CANNULA
--- NOTE | 2016-12-25 03:38 | HISTORY AND PHYSICAL ---
HISTORY OF PRESENT ILLNESS: Presented to the emergency room for evaluation. Patient is complaining of shortness of breath, has been aching. She says that it has been going on for 4-6 hours. She had a recent URI. She denies a cough. She has had some environmental exposure but nothing in particular. She has had spells similar to this. She says that she felt like she had fever and chills, felt lightheaded. Short of breath was also an issue. On presentation, her temperature was 97 degrees, pulse was 86, respiratory rate was 25, blood pressure 148/82, O2 saturation was 94. DATABASE: She had a blood gas done in the ER, pH was 7.51, pCO2 was 43, PO2 was 58, carboxyhemoglobin was 1.7, and these were done on 4 L, 36%. Her sodium is 132, potassium is 3.4, chloride 94, CO2 30, BUN 21, creatinine 0.5, GFR greater than 60, BUN/creatinine ratio was 42, glucose was 115, calculated osmolality 268, calcium was 8.8, magnesium 2.1. Total bilirubin 0.6, AST 22, ALT 14, alkaline phosphatase 67. CK 51, troponin was less than 0.01. Total protein 6.6, albumin 3.5, globulin 3. White count was 10,026, hematocrit was 49.3, platelet count was 217,000 neutrophils 74%, polys 13.5, monocytes 11.5. D-dimer was 1.28. INR was 0.9. BNP was 1619. Plasma lactate was 1.4. She was felt to have emphysema with a recent exacerbation. She was given Tylenol, albuterol treatments x2, 1 g of ceftriaxone, 60 of Lasix IV, 125 mg of Solu-Medrol at 2:17 and 160 mg at 5:15, morphine 2 mg was also ordered but discontinued. Her pulmonary angiogram showed there were no filling defects in the pulmonary arteries. There are artifacts from motion that limits the detail. There is a right mid lung calcified granuloma from old granulomatous disease. There is mild basilar subsegmental atelectasis. There is no consolidation, pleural effusions, or pneumothorax identified per reports. REVIEW OF SYSTEMS: Constitutional: She has had no significant weight gain, weight loss, fever, or chills. Eyes: No change in visual del real, irritation or drainage. Ears, Nose, and Throat: No pharyngitis, otitis, or sinusitis. Cardiovascular: She denies any tachycardia. She denies any significant edema,. She denies any chest pain, palpitations. Respiratory: No cough with bloody sputum but she is having a cough with some phlegm. Gastrointestinal: No nausea, vomiting, diarrhea, constipation, bloody stools, tarry stools. : No dysuria, hematuria, polyuria, or pyuria. Musculoskeletal: No myalgias or arthralgias. Skin: Negative. Neurological: No focal deficits. Psychiatric: Negative. Endocrinologic: No polyuria, polydipsia, or heat or cold intolerance. Hematologic/Lymphatic: No clotting or bleeding disorders. PAST MEDICAL HISTORY: She has a history of hypertension. She has had a previous appendectomy, hysterectomy, tonsillectomy, and a partial colon resection. She has had a history of cervical cancer. PHYSICAL EXAMINATION: HEENT: At the time of admission, her head was normocephalic. Eyes were PERRLA. EOMs intact. Sclerae clear. Fundi benign. Nares patent. Oropharynx negative. NECK: Supple without any carotids, without thyromegaly or lymphadenopathy, jugular venous distention. CHEST: She had slightly diminished breath sounds. No consolidative features. LYMPHATICS: Negative. GASTROINTESTINAL: No hepatosplenomegaly. BACK: No CVA tenderness. EXTREMITIES: Negative for clubbing, cyanosis, and edema. NEUROLOGICAL: Examination was symmetrical and intact. ADMITTING DIAGNOSES: 1. Chronic obstructive pulmonary disease. 2. History of emphysema. 3. She also had an extremely hematocrit, 49.3. 4. Disorder reflective of chronic hypoxia. 5. Likewise, she had an anion gap of 8, her carbon dioxide level was 30. PLAN: She was admitted. Placed on steroids, breathing treatments, ceftriaxone, Lasix q.24 along with breathing treatments. cc: Edward Garcia MD
--- NOTE | 2017-01-01 04:19 | DISCHARGE SUMMARY ---
ADMISSION DATE: 11/03/2016 DISCHARGE DATE: 11/03/2016 HISTORY OF PRESENT ILLNESS: A patient of mine who presented to the emergency room on the and then the and was admitted for COPD, CO2 retention, and significant hypoxemia. She had a white count of 11,077, hematocrit was 48, platelet count was 155,000. Blood gases showed a pH of 7.28, pCO2 of 68, PO2 of 92, with a of carboxyhemoglobin 6.9. She was present in the ER the previous day but nobody checked gases. These gases were done on room air. HOSPITAL COURSE: She was put in the hospital and was placed on albuterol nebulizer, Solu-Medrol, ipratropium, nicotine patch, carvedilol 6.25 b.i.d., spironolactone 50 daily, Solu-Medrol 60 IV q.8, Levaquin 500 daily, and ibuprofen. During the hospital stay, she was afebrile. The night before she was discharged, she had some vague chest pain. We checked a CT angiogram on that day. It revealed no evidence of clot and no evidence of pneumonia, no evidence of pneumothorax. Her blood gases were monitored. Slowly, the carboxyhemoglobin decreased from 2 down to 1.7. Pulmonary toilet, her pCO2 went from as high as 72 subsequently down to 37. At the time of discharge, her PO2 was 57 on 24% FiO2. PH was normal. Chest x-ray was unchanged. No significant pathology was identified. Pulmonary angiogram D-dimer, showed old granulomata, otherwise negative. Her EKGs showed sinus rhythm, minimal voltage for LVH, otherwise negative. This patient had not been seen by a doctor in quite some time. She was discharged with nebulized therapy. She was discharged with O2. She was given albuterol, Atrovent combination and also given hydroxyzine for anxiety, spironolactone, carvedilol 6.25 b.i.d. She is to stop smoking. Follow up as an outpatient. cc: Edward Garcia MD
== END 2016-11-03 18:29 | disposition home or self-care (01) ==
LOC: P.ED 02:14 → P.EDIPHOLD 05:45
PROVIDERS: ADMIT Internal Medicine; ATTEND Internal Medicine